=== PATIENT | female | born 1985 | race Caucasian/White ===

== ENCOUNTER 2024-05-01 18:30 | Emergency (ER) | payer OTHER, SELFPAY ==
--- NOTE | ~2024-05-01 | XR_ITS ---
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 RESULT: Lines, tubes, and devices: None. Lungs and pleura: Ill-defined patchy right mid and lower lung airspace opacities. Cardiomediastinal silhouette: Stable. Other: No acute osseous or upper abdominal finding. IMPRESSION: Right mid and lower lung airspace opacities concerning for infection. Reviewed, dictated and finalized at location K. E RECRUITER
[2024-05-01 18:38] VITALS: BP 137/73; PULSE 90; RESP 20; TEMP 37.4; O2SAT 96
--- NOTE | 2024-05-01 18:56 | ED.URI ---
HPI - URI/Sore Throat General Chief Complaint: Upper Respiratory Infection Stated Complaint: sob/cough/pnuemonia/fever Time Seen by Provider: 05/01/24 18:56 Source: patient Mode of arrival: ambulatory Limitations: no limitations History of Present Illness HPI Narrative: 38-year-old female states that she has been coughing with chest congestion since April 14. Was seen in the ER and told she had pneumonia after a chest x-ray. completed Z-Ahsan and states that symptoms never improved. Over the last week has been coughing with worsening of chest congestion. Afebrile. Shortness of breath with exertion. Is concerned that she still has pneumonia. All systems reviewed and negative except as noted above. Related Data Home Medications Medication Instructions Recorded Confirmed bupropion HCl 150 mg 24 hr tablet, mg PO DIRECTED 05/01/24 extended release bupropion HCl 300 mg 24 hr tablet, mg PO DIRECTED 05/01/24 extended release propranolol 60 mg capsule,24 mg PO DIRECTED 05/01/24 hr,extended release Allergies Allergy/AdvReac Type Severity Reaction Status Date / Time No Known Allergies Allergy Verified 05/01/24 18:46 Review of Systems Review of Systems: CONSTITUTIONAL: Denies fever, chills, or sweats. reports fatigue. EYES: Denies visual changes, redness, or discharge. ENT: Denies rhinorrhea, congestion, sore throat, or otalgia. CARDIOVASCULAR: Denies chest pain, palpitations, or edema. RESPIRATORY: Reports cough, chest congestion and dyspnea with exertion. GASTROINTESTINAL: Denies abdominal pain, nausea, vomiting, or diarrhea. GENITOURINARY: Denies dysuria or hematuria. SKIN: Denies rash or itching. MUSCULOSKELETAL: Denies back pain, joint pain, or myalgia. NEUROLOGIC: Denies headache, numbness, or weakness. PSYCHIATRIC: Denies anxiety or depression. All other systems reviewed are negative, except as documented in HPI. PMFSH Comments At time of signature, agree with nursing past medical, surgical, social and family history. There is no relevant family history pertinent to the presenting complaint. Exam Narrative: GENERAL: This is a well-nourished, well-developed patient, in no apparent distress. HEAD: normocephalic, atraumatic. EYES: PERRL. Sclera clear/white. Vision is grossly intact. EARS: External ears normal, auditory canals clear and without drainage, TMs normal without perforation. Hearing grossly intact. NOSE: External nose normal with no obvious nasal discharge, nares without redness, no rhinorrhea. THROAT: Mucous membranes moist, posterior pharynx clear. NECK: Neck supple, non-tender without lymphadenopathy, masses or thyromegaly. CARDIOVASCULAR: Regular rate and rhythm without murmurs, gallops, or rubs. RESPIRATORY: Decreased to bilateral lower lung duran. Breath sounds equal bilaterally. No wheezes, rales, or rhonchi. SKIN: warm, Dry, intact with no suspicious lesions or rash, good texture and turgor. NEURO: awake, alert, and oriented to person, place and time. There were no obvious focal neurologic abnormalities. EXTREMITIES: No joint tenderness, effusion, or edema noted. Course Course Level of Care: Express Care Visit Vital Signs Vital signs: Vital Signs Temperature 37.4 C 05/01/24 18:38 Pulse Rate 90 05/01/24 18:38 Respiratory Rate 20 05/01/24 18:38 Blood Pressure 137/73 05/01/24 18:38 Pulse Oximetry 96 05/01/24 18:38 Oxygen Delivery Room Air 05/01/24 18:38 Temperature 37.4 C 05/01/24 18:38 Pulse Rate 90 05/01/24 18:38 Respiratory Rate 20 05/01/24 18:38 Blood Pressure 137/73 05/01/24 18:38 Pulse Oximetry 96 05/01/24 18:38 Oxygen Delivery Room Air 05/01/24 18:38 Reviewed MDM - URI/Sore Throat MDM Narrative Medical decision making narrative: Patient is aware of diagnosis, understands and agrees to treatment plan. Anticipatory guidance given. Patient agrees to follow-up as directed and is aware of reasons to seek care at the emergency department. Portions of this record may have been created with voice recognition software discussed chest x-ray results with patient. Chest x-ray concerning for pneumonia. Will treat patient with doxycycline. Recommend follow-up with primary care physician in 1 week. Patient is nontoxic. O2 saturation 96% room air. 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 RESULT: Lines, tubes, and devices: None. Lungs and pleura: Ill-defined patchy right mid and lower lung airspace opacities. Cardiomediastinal silhouette: Stable. Other: No acute osseous or upper abdominal finding. IMPRESSION: Right mid and lower lung airspace opacities concerning for infection. Discharge Plan Discharge Clinical Impression: Pneumonia Patient Disposition: Home, Self-Care Condition: Stable Instructions: Antibiotic Form, Pneumonia (ED) Additional Instructions: Your chest x-ray showed concerns for pneumonia. Your influenza test was negative today. take medications as prescribed. Take [id number] Mucinex as directed on packaging. Drink at least 64 oz of water a day. Follow-up with your primary care physician in 1 week. Prescriptions: New doxycycline hyclate 100 mg capsule 100 mg PO BID 7 Days Qty: 14 0RF benzonatate 200 mg capsule 200 mg PO TID PRN (Reason: cough) Qty: 20 0RF methylprednisolone [Medrol (Ahasn)] 4 mg tablets,dose pack See Rx Instructions PO .COMPLEX Qty: 21 0RF Rx Instructions: orally per package directions No Action propranolol 60 mg capsule,extended release 24 hr PO DIRECTED bupropion HCl 300 mg tablet extended release 24 hr PO DIRECTED bupropion HCl 150 mg tablet extended release 24 hr PO DIRECTED Follow-up/Referrals: PHYSICIAN,FRETT[employer]ING INSTRUMENT REPAIRER [Primary Care Provider] - Stand Alone Forms: Work/School Release IP Time of Disposition: 19:30
[2024-05-01 19:22] LABS: EDINFLUASCREEN Negative (Negative); EDINFLUBSCREEN Negative (Negative)
--- NOTE | 2024-05-02 19:28 | PC.NURSE ---
Pt was seen at [facility] on 10/02/24. Pt called today saying she was supposed to get a Px for a medrol dose-gail, but was given prednisone when she picked up her medications at the pharmacy. Pt states that she she started vomiting within 10 minutes of taking the prednisone. Per EMR, it appears a Px for prednisone was sent to pharmacy, but Pt's discharge instructions do say she would be getting a medrol dose-gail. New Px for medrol dose-gail given verbally to Sandra on [facility] per FANNY Murillo.
== END 2024-05-01 19:35 | disposition home or self-care (01) ==
PROVIDERS: Emergency Provider Nurse Practitioner Family
DX: J18.9 Pneumonia, unspecified organism (principal)
CPT/HCPCS: 71046; 87804; 99203; G0463